=== PATIENT | male | born 1985 ===

== ENCOUNTER 2017-03-13 02:33 | Emergency (ER) | payer OTHER ==
[~2017-03-13] VITALS: Ht 160 cm; Wt 100.0 kg
[2017-03-13 03:48] VITALS: BP 144/80
== END 2017-03-13 03:50 ==
LOC: ER 02:34
DX: Z02.89 Encounter for other administrative examinations (principal); F10.129 Alcohol abuse with intoxication, unspecified; V87.7XXA Person injured in collision between other specified motor vehicles (traffic), initial encounter; Y93.89 Activity, other specified; Y92.89 Other specified places as the place of occurrence of the external cause; Y99.8 Other external cause status
CPT/HCPCS: 99283